=== PATIENT | female | born 1935 | race Caucasian/White ===

== ENCOUNTER 2017-01-15 16:52 | Observation (INO) | payer OTHER ==
[2017-01-15] MEDS ORDERED: ONDANSETRON 4 MG/2 ML VIAL IVP PRN (17:06)
[2017-01-15] MEDS ORDERED: HYDROmorphONE/DILAUDID 1 MG/ML SYR IVP PRN (17:06)
[2017-01-15] MEDS ORDERED: ACETAMINOPHEN 325 MG TAB PO PRN (17:06)
[2017-01-15] MEDS: HYDROCODONE/APAP 5/325 TAB PO PRN (20:22)
--- NOTE | 2017-01-15 21:08 | GCON ---
[f rep st] CONSULTATION CARDIAC CONSULTATION CHIEF COMPLAINT: Atrial fibrillation. HISTORY OF PRESENT ILLNESS: The patient is a 81-year-old female who was admitted to Same-Day Surger y at [facility]. There was no preoperative EKG. Apparently, she had an irregular pul se at least noted by one attendant when she was placed on the monitor. She was in atrial fibrillati on, with controlled rate. She underwent left inguinal hernia repair by Dr. Kendrick laparoscopically w ith mesh. No complications in recovery. She remained in atrial fibrillation with stable vital sign s. I was called to consult. In speaking to her, she has no history of palpitations, syncope, CHF s igns or symptoms. She has no bleeding issues such as hematuria or GI blood loss. No labs were done , and are pending. She lives by herself, and was to be discharged home today. I did talk to Dr. Marie medrano, who is her primary care physician, who had no history of record of her being in atrial fibri llation, although there was a questionable history of irregular heart rate on a colonoscopy. I spok e to Dr. Kendrick, as well, at this point. She will be admitted to Dr. Kendrick' service overnight for mo nitoring. An echocardiogram can be done. He does not want to give anticoagulation at this time due to her recent surgery today. She is alert, comfortable, and active. PAST MEDICAL HISTORY: Includes a history of hypertension, medically well controlled on her Avapro. She has a history of GERD on H2 blockers. She has a history of hypothyroidism, well controlled on Synthroid. PAST SURGICAL HISTORY: Carpal tunnel, cataracts. ALLERGIES: Amoxicillin. MEDICATIONS: Avapro, , Synthroid, Tricor, Zocor. PRIMARY CARE PHYSICIAN: Wallace Contreras MD, in [place], who I did speak. PHYSICAL EXAMINATION: VITAL SIGNS: Blood pressure is 126/70, heart rates were in the 50s and 60s i n atrial fibrillation confirmed by EKG. GENERAL: She is an elderly female resting comfortably in h er postoperative bed without symptomatology. HEENT: Negative. Mouth was moist. LUNGS: Clear. C ARDIOVASCULAR: Regular rate and rhythm. I cannot hear a loud gallop, murmurs or rubs. ABDOMEN: S oft, nontender. She did have a surgical wound incision in her left lower abdomen with an ice pack. MUSCULOSKELETAL: Showed no signs of clubbing or edema. ASSESSMENT AND PLAN: Atrial fibrillation, unknown chronicity, asymptomatic at this time. The patie nt will be admitted to overnight observation at [facility] for observation. Hopeful ly, tomorrow, we could start Eliquis or other anticoagulation if it is okay with Dr. Kendrick. We will also progress with an echocardiogram. I had a long discussion with her regarding her options for w orkup down the line, including exercise stress test, possible overnight pulse oximetry. These testi ngs will be decided upon her clinical course, but at this time, she feels comfortable and stable. N o rhythm or rate control medications are needed at this time. All questions answered. The case was discussed with Dr. Kendrick and Dr. Contreras. /[id number]/MODL
[2017-01-16] MEDS: HYDROCODONE/APAP 5/325 TAB PO PRN ×2 (01:22→13:08)
[2017-01-16] MEDS ORDERED: PNEUMOC 13-VAL CONJ-DIP CRM/PF 0.5 ML SYR IM ONE (07:48)
--- NOTE | 2017-01-16 09:24 | SOAPPROG ---
WILBER Progress Note Assessment/Plan: Assessment: 1. atrial fibrillation..?chronicity..pt to have echo and labs today...will start eliquis( if ok with dr mcdonald) after these tests and can be d/c'd home with further f/u at our office for ?30 day moniter..this was explained to pt and she agrees Plan:1. as ordered 01/16/17 09:21 Subjective: pt feels well..she has been in afib all night without problems Objective: Vital Signs Temp Pulse Resp BP Pulse Ox 36.7 C 61 16 122/74 H 94 01/16/17 07:50 01/16/17 07:50 01/16/17 07:50 01/16/17 07:50 01/16/17 07:50 01/15/17 01/16/17 01/17/17 05:59 05:59 05:59 Intake Total 400 Balance 400 Physical Exam - Physical Exam Respiratory: lungs clear Cardiac/Chest: irregularly irregular, No edema, No JVD ICD10 Worksheet Patient Problems: Problems Problem Status Onset Atrial fibrillation Acute
[2017-01-16 11:29] VITALS: BP 110/65; PULSE 74; RESP 18; TEMP 98.5; O2SAT 92
[2017-01-16 11:29] LABS: HEMATOCRIT 35.9 % (38.0-47.0); HEMOGLOBIN 12.6 g/dL (12.6-16.3); MEAN CELL HEMOGLOBIN 31.5 pg (27.9-34.1); MEAN CELL HEMOGLOBIN CONCENTR. 35.1 g/dL (32.4-36.7); MEAN CELL VOLUME 89.8 fL (81.5-99.8); RED CELL DISTRIBUTION WIDTH 13.2 % (11.5-15.2)
[2017-01-16 11:46] LABS: ALANINE AMINOTRANSFERASE 23 IU/L (9-52); ALBUMIN 3.4 g/dL (3.5-5.0); ALKALINE PHOSPHATASE 30 IU/L (38-126); ANION GAP 7 mEq/L (8-16); ASPARTATE AMINOTRANSFERASE 29 IU/L (14-46); CALCIUM 9.1 mg/dL (8.5-10.4); CARBON DIOXIDE 21 mEq/l (22-31); CHLORIDE 99 mEq/L (97-110); CREATININE 1.2 mg/dL (0.6-1.0); GLOMERULAR FILTRATION RATE 43; GLUCOSE 109 mg/dL (70-100); POTASSIUM 4.6 mEq/L (3.5-5.2); SODIUM 127 mEq/L (134-144); TOTAL PROTEIN 5.9 g/dL (6.3-8.2)
[2017-01-16 12:13] LABS: INR 1.13 (0.83-1.16); PROTIME(PATIENT) 14.4 SEC (12.0-15.0)
--- NOTE | 2017-01-16 12:23 | SOAPPROG ---
SOAP Progress Note Assessment/Plan: Assessment: 81yo female s/p hernia surgery, in Afibb -- undergoing cardiac eval Tolerating regular diet PE awake alert abdomen very soft nontender Plan: d/c when cleared by cardiology ok to contact me for d/c if this happens today [phone] Alin HART 01/16/17 12:21 Objective: Vital Signs Temp Pulse Resp BP Pulse Ox 36.9 C 74 18 110/65 92 01/16/17 11:28 01/16/17 11:28 01/16/17 11:28 01/16/17 11:28 01/16/17 11:28 Laboratory Results 01/16/17 11:22 01/16/17 11:22 01/15/17 01/16/17 01/17/17 05:59 05:59 05:59 Intake Total 400 Balance 400 PT 14.4 SEC (12.0-15.0) 01/16/17 11:22 INR 1.13 (0.83-1.16) 01/16/17 11:22 ICD10 Worksheet Patient Problems: Problems Problem Status Onset Atrial fibrillation Acute
--- NOTE | 2017-01-16 13:08 | ECHO ---
[id number] + + [address] : : [place] [address] : : [phone] + + Adult Echocardiographic Report + ---------+ :Name: CHERRIE FOX SStudy Date: 01/16/2017 11:33 AM : : Hospital Admission Number: [id number] Ayala radford: 217: :: 1935 Gender: Female Height: 66 i n : :Age: 81 yrs Race: WH Weight: 180 lb : :Reason For Study: Atrial Fibrillation : : BSA: 1.9 met ers2 : + ---------+ MMode/2D Measurements \T\ Calculations IVSd: 0.92 cm LVIDd: 4.3 cm FS: 37.8 % MV Diam: 3.0 cm LVPWd: 0.68 cm LVIDs: 2.7 cm EDV(Teich): 83.4 ml ESV(Teich): 26.5 ml EF(Teich): 68.2 % Ao root diam: LVOT diam: 1.8 cmLVLd ap4: 6.9 cm SV(MOD-sp4): 3.4 cm LVOT area: EDV(MOD-sp4): 52.0 ml LA dimension: 2.7 cm2 66.0 ml 4.4 cm LVLs ap4: 5.7 cm ESV(MOD-sp4): 14.0 ml EF(MOD-sp4): 78.8 % Normal Measurement Values: + + :LVIDd (3.5-5.7cm) IVSd (0.6-1.1cm) LVPWd (0.6-1.1cm) Aortic Root (2.0-3.7cm)Left Atrium (1.5-4.0cm): :LV Vol(d) (76-115ml) LV Vol(s) (29-48ml) Ejec Fraction (50-65%)PV Adonay (0.6- 1.2m/s) TV Adonay (0.4-1.0m/s) : :MV E Adonay (0.8-1.0m/s)MV A Adonay (0.3-1.0m/s)LVOT Adonay (0.7-1.2m/s) Asc Ao Adonay ( 0.9-1.8m/s) : + + Doppler Measurements \T\ Calculations MV E max adonay: MV V2 max: Ao mean PG: LV V1 mean P.3 cm/sec 92.1 cm/sec 2.3 mmHg 1.1 mmHg MV max P.4 mmHg Ao V2 mean: LV V1 mean: MV V2 mean: 71.2 cm/sec 47.7 cm/sec 47.6 cm/sec Ao V2 VTI: 18.3 cm LV V1 VTI: 16.1 cm MV mean P.1 mmHgAVA(I,D): 2.3 cm2 MV V2 VTI: 22.3 cm MV area (1 diam): 7.2 cm2 MVA(VTI): 1.9 cm2 MV Flow area(1diam): 7.2 cm2 MR max adonay: MR(RF 1 diam): SV(MV 1 diam): TR max adonay: 415.3 cm/sec 19.8 % 159.8 ml 276.9 cm/sec MR max PG: SI(MV 1 diam): TR max P.0 mmHg 83.5 ml/m2 30.7 mmHg SV(LVOT): 42.9 ml RAP systole: 10.0 mmHg RVSP(TR): 40.7 mmHg RF(MV,Ao)(1 diam): -0.05 RF(MV,LVOT)(1diam): 0.73 Left Ventricle The left ventricle is normal in size. There is normal left ventricular wall thickness. Left ventricular systolic function is normal. Ejection Fraction = 65-70%. No regional wall motion abnormalities noted. Right Ventricle The right ventricle is normal in size and function. Atria The left atrium is moderately dilated. The right atrium is moderately dilated. The interatrial septum is intact with no evidence for an atrial septal defect. Mitral Valve The mitral valve is normal in structure and function. There is no evidence of mitral valve prolapse. There is no mitral valve stenosis. There is moderate mitral regurgitation. Tricuspid Valve Normal tricuspid valve. There is moderate tricuspid regurgitation. Right ventricular systolic pressure is 41mmHg. Aortic Valve The aortic valve is trileaflet. The aortic valve opens well. There is no aortic stenosis. There is no aortic insufficiency. Pulmonic Valve The pulmonic valve is normal in structure and function. Trace pulmonic valvular regurgitation. Great Vessels The aortic root is normal size. Pericardium/Pleural There is no pericardial effusion. There is a fat pad seen. Conclusion A complete two-dimensional transthoracic echocardiogram was performed (2D, M-mode, Doppler and color flow Doppler). Left ventricular systolic function is normal. Ejection Fraction = 65-70%. The left atrium is moderately dilated. The right atrium is moderately dilated. There is moderate mitral regurgitation. There is moderate tricuspid regurgitation. Right ventricular systolic pressure is 41mmHg. Trace pulmonic valvular regurgitation. There is a fat pad seen. Final Reading Physician: Aneta Zhang signed on 01/16/2017 01:07 PM Ordering Physician: SOFY DAVISON Performed By: Jaylene Erickson RDCS
--- NOTE | 2017-01-20 22:01 | GDS ---
[f rep st] DISCHARGE SUMMARY REASON FOR ADMISSION: Elective hernia surgery. HOSPITAL COURSE: Patient is a pleasant 81-year-old female who came in for an elective bilateral lap aroscopic hernia repair, which she underwent with Dr. Kendrick on 01/15/2017. Unfortunately, she devel oped new onset atrial fibrillation after surgery and was seen by Cardiology. She was sent home on [facility] [employer] with instructions to follow up with Dr. Balderas as an outpatient. She was instructed that she should do no heavy lifting for 6 weeks, okay to shower, regular diet. S he should call our office to schedule an appointment in approximately 10 days time. /[id number]/MODL
== END 2017-01-16 16:15 | disposition home or self-care (01) ==
LOC: F2W 18:02
PROVIDERS: ADMIT Surgery; ATTEND Surgery
PROC: 0YQA4ZZ Repair Bilateral Inguinal Region, Percutaneous Endoscopic Approach (ICD-10-PCS; principal; 2017-01-15)
DX: I48.91 Unspecified atrial fibrillation (principal); I97.89 Other postprocedural complications and disorders of the circulatory system, not elsewhere classified; K40.20 Bilateral inguinal hernia, without obstruction or gangrene, not specified as recurrent; Z23 Encounter for immunization; K21.9 Gastro-esophageal reflux disease without esophagitis; I10 Essential (primary) hypertension; E78.00 Pure hypercholesterolemia, unspecified; E03.9 Hypothyroidism, unspecified
CPT/HCPCS: 49650; 90670; 93306; G0009; G0378

== ENCOUNTER 2017-03-11 06:51 | Day surgery (SDC) | payer OTHER ==
[2017-03-11] MEDS ORDERED: PROPOFOL 200 MG/20 ML VIAL IVP ONE (06:54)
[2017-03-11] MEDS ORDERED: NS 500 ML IV ONE (06:54)
[2017-03-11] MEDS ORDERED: MIDAZOLAM 2 MG/2 ML VIAL IVP ONE (06:54)
[2017-03-11] MEDS ORDERED: fentaNYL 100 MCG/2 ML INJ IVP ONE (06:54)
--- NOTE | 2017-03-11 07:02 | CPEKG ---
Heart Rate: 87 RR Interval: 690 QRSD Interval: 90 QT Interval: 328 QTC Interval: 395 QRS [place]: 15 T Wave [place]: -11 EKG Severity - ABNORMAL ECG - EKG Impression: ATRIAL FIBRILLATION, V-RATE 72-100 EKG Impression: BORDERLINE T ABNORMALITIES, DIFFUSE LEADS Electronically Signed By: Jackie Lawrence 11-Mar-2017 09:44:00
[2017-03-11 07:41] LABS: ANION GAP 10 mEq/L (8-16); CALCIUM 9.6 mg/dL (8.5-10.4); CARBON DIOXIDE 22 mEq/l (22-31); CHLORIDE 106 mEq/L (97-110); CREATININE 1.2 mg/dL (0.6-1.0); GLOMERULAR FILTRATION RATE 43; GLUCOSE 90 mg/dL (70-100); POTASSIUM 4.7 mEq/L (3.5-5.2); SODIUM 138 mEq/L (134-144)
[2017-03-11 07:47] LABS: INR 1.23 (0.83-1.16); PROTIME(PATIENT) 15.5 SEC (12.0-15.0)
[2017-03-11 07:48] LABS: APTT 29.4 SEC (23.0-38.0)
--- NOTE | 2017-03-11 08:42 | PDTEE1 ---
GABRIELA Cardioversion Procedure Procedure: Electrical Cardioversion, Transesophageal Echo Indications: Atrial Fibrillation Consent: Signed and in Chart Anticoagulation: Eliquis Procedural Details: Pads were placed in anterior-posterior position. GABRIELA probe was advanced and standard images obtained. There is no evidence of left atrial or left atrial appendage thrombus. Synchronized cardioversion attempt #1: 100J Results: Normal sinus rhythm Conclusions: Successful GABRIELA Cardioversion Patient Problems: Problems Problem Status Onset Atrial fibrillation Acute
--- NOTE | 2017-03-11 08:49 | CPEKG ---
Heart Rate: 75 RR Interval: 800 P-R Interval: 208 QRSD Interval: 88 QT Interval: 376 QTC Interval: 420 P [place]: 20 QRS [place]: 8 T Wave [place]: -7 EKG Severity - BORDERLINE ECG - EKG Impression: SINUS RHYTHM EKG Impression: BORDERLINE T ABNORMALITIES, DIFFUSE LEADS EKG Impression: COMPARED WITH 03/11/2017 AT 7:00 A.M., SINUS RHYTHM HAS REPLACED ATRIAL EKG Impression: FIBRILLATION Electronically Signed By: Jackie Lawrence 11-Mar-2017 09:43:54
--- NOTE | 2017-03-17 11:37 | ECHO ---
[id number] + + [address] : : [facility] [address] : : [phone] + + Transesophageal Echocardiographic Report + + :Name: FOXCHERRIE Study Date: 03/11/2017 07:58 AM : : Hospital Admission Number: [id number] : :: 1935 Gender: Female : :Age: 81 yrs Race: WH : :Reason For Study: pre-cardioversion : :History: afib : + + LV The left ventricle is normal in size and function. RV The right ventricle is normal in size and function. Atria The left atrium is mild to moderately dilated. No thrombus is detected in the left atrial appendage. No left atrial mass or thrombus visualized. The right atrium is mildly dilated. Mitral Valve The mitral valve is normal in structure and function. There is mild to moderate mitral regurgitation. Aortic Valve The aortic valve is trileaflet. There is no aortic insufficiency. Pulmonic Valve The pulmonic valve is normal in structure and function. Trace pulmonic valvular regurgitation. Tricuspid Valve The tricuspid valve is normal in structure and function. There is mild tricuspid regurgitation. Pericardium Small pericardial effusion. Conclusion A 2D transesophageal echocardiogram with Doppler and color flow Doppler was performed. The left ventricle is normal in size and function. Normal wall motion. The left atrium is mild to moderately dilated. Normal appearing valves. No thrombus is detected in the left atrial appendage. No left atrial mass or thrombus visualized. The right atrium is mildly dilated. There is mild to moderate mitral regurgitation. Trace pulmonic valvular regurgitation. There is mild tricuspid regurgitation. Small pericardial effusion. Final Reading Physician: Aneta Jackson signed on 03/17/2017 11:36 AM Ordering Physician: Oseas Urrutia Performed By: Arpit Graves MD
== END 2017-03-11 10:30 | disposition home or self-care (01) ==
LOC: FCATH 06:51
PROVIDERS: ATTEND Internal Medicine
PROC: B245ZZ4 Ultrasonography of Left Heart, Transesophageal (ICD-10-PCS; principal; 2017-03-11)
PROC: 5A2204Z Restoration of Cardiac Rhythm, Single (ICD-10-PCS; principal; 2017-03-11)
DX: I48.91 Unspecified atrial fibrillation (principal); I10 Essential (primary) hypertension; E03.9 Hypothyroidism, unspecified; I34.0 Nonrheumatic mitral (valve) insufficiency; K21.9 Gastro-esophageal reflux disease without esophagitis; E78.00 Pure hypercholesterolemia, unspecified; Z79.01 Long term (current) use of anticoagulants
CPT/HCPCS: J2704

== ENCOUNTER → 2017-07-03 | Outpatient (CLI) | payer OTHER ==
[~2017-07-03] MED LIST: BUPIVACAINE 0.25% 30 ML SDV ONE; DEPO METHYLPREDNISOLONE 40 MG/ML SDV ONE; LIDOCAINE 1% 300 MG/30 ML SDV ONE
== END ==
LOC: FIMAGING 12:20
PROVIDERS: ATTEND Orthopaedic Surgery
PROC: 3E0U3GC Introduction of Other Therapeutic Substance into Joints, Percutaneous Approach (ICD-10-PCS; principal; 2017-07-03)
PROC: 0K9P3ZZ Drainage of Left Hip Muscle, Percutaneous Approach (ICD-10-PCS; principal; 2017-07-03)
DX: M67.48 Ganglion, other site (principal); M16.12 Unilateral primary osteoarthritis, left hip
CPT/HCPCS: 20612; 76942; J1030

== ENCOUNTER → 2017-12-04 | Outpatient (CLI) | payer OTHER | LOC: BHFA 14:00 | PROVIDERS: ATTEND Internal Medicine Cardiovascular Disease | DX: I48.91 Unspecified atrial fibrillation (principal) ==

== ENCOUNTER → 2018-01-05 | Outpatient (CLI) | payer OTHER | LOC: BHFA 13:00 | PROVIDERS: ATTEND Internal Medicine Cardiovascular Disease | DX: I48.91 Unspecified atrial fibrillation (principal); R06.02 Shortness of breath | CPT/HCPCS: 78452; 93017; A9500; J2785 ==

== ENCOUNTER → 2018-01-28 | Outpatient (CLI) | payer OTHER | LOC: BHFA 09:00 | PROVIDERS: ATTEND Internal Medicine Cardiovascular Disease | DX: R06.02 Shortness of breath (principal) ==

== ENCOUNTER → 2019-03-12 | Outpatient (CLI) | payer OTHER | LOC: FIMAGING 10:33 | PROVIDERS: ATTEND Physician Assistant | DX: S32.9XXA Fracture of unspecified parts of lumbosacral spine and pelvis, initial encounter for closed fracture (principal); M81.0 Age-related osteoporosis without current pathological fracture ==